=== PATIENT | female | born 1945 | race Two or more races ===

== ENCOUNTER 2018-05-24 15:55 | Emergency (ER) | payer OTHER ==
[~2018-05-24] VITALS: Ht 162.6 cm; Wt 91.6 kg
[2018-05-24] MEDS ORDERED: TOPROL XL25 MG (16:12)
[2018-05-24] MEDS ORDERED: HUMULIN 70100 UNIT/2 (16:12)
== END 2018-05-24 22:51 | disposition home or self-care (01) ==
LOC: ER 15:55
DX: S80.02XA Contusion of left knee, initial encounter (principal); S80.12XA Contusion of left lower leg, initial encounter; S40.012A Contusion of left shoulder, initial encounter; M54.2 Cervicalgia; W01.198A Fall on same level from slipping, tripping and stumbling with subsequent striking against other object, initial encounter; Y93.9 Activity, unspecified; Y92.63 Factory as the place of occurrence of the external cause; Y99.8 Other external cause status

== ENCOUNTER 2018-06-09 12:15 | Outpatient (CLI) | payer OTHER ==
[~2018-06-09 12:15] MED LIST: HUMULIN 70100 UNIT/2; TOPROL XL25 MG
== END 2018-06-09 15:29 | disposition home or self-care (01) ==
LOC: MRI 12:15
DX: M25.562 Pain in left knee (principal)
CPT/HCPCS: 73721